=== PATIENT | female | born 1960 | race Two or more races ===

== ENCOUNTER 2024-07-10 09:47 | Outpatient (CLI) | payer OTHER | END 2024-07-10 09:50 | disposition home or self-care (01) | LOC: MAMO-SONO 09:47 | PROVIDERS: ATTEND Obstetrics & Gynecology Obstetrics | DX: N64.4 Mastodynia (principal); Z12.31 Encounter for screening mammogram for malignant neoplasm of breast ==

== ENCOUNTER → 2024-07-16 13:07 | Outpatient (CLI) | payer OTHER | END | disposition home or self-care (01) | LOC: NUCLEAR 13:07 | PROVIDERS: ATTEND Obstetrics & Gynecology Obstetrics | DX: M85.80 Other specified disorders of bone density and structure, unspecified site (principal); M81.0 Age-related osteoporosis without current pathological fracture ==

== ENCOUNTER 2024-08-14 09:57 | Outpatient (CLI) | payer OTHER | END 2024-08-14 10:06 | disposition home or self-care (01) | LOC: MRI 09:57 | PROVIDERS: ATTEND General Practice | DX: G31.84 Mild cognitive impairment of uncertain or unknown etiology (principal) | CPT/HCPCS: 70551 ==